=== PATIENT | male | born 1970 | race Caucasian/White ===

== ENCOUNTER 2024-05-26 09:05 | Inpatient (IN) | payer OTHER ==
[~2024-05-26] VITALS: Ht 180.3 cm; Wt 118.3 kg
[2024-05-26] MEDS ORDERED: Thiamine HCl 100 MG in NS 50 ML IV ONE (09:20)
[2024-05-26] MEDS ORDERED: NS 1,000 ML IV SCH ×3 (09:20→18:00)
[2024-05-26] MEDS ORDERED: Folic Acid 1 MG in NS 50 ML IV ONE (09:20)
[2024-05-26 09:29] LABS: Hematocrit 28.8 % (37.0-53.0); Hemoglobin 9.4 g/dL (13.5-17.5); Mean Corpuscular HGB 35.3 pg (26.0-34.0); Mean Corpuscular HGB Conc 32.6 g/dL (31.5-36.5); Mean Corpuscular Volume 108 fL (80-100); NRBC ABSOLUTE 0.39 K/mm3 (0.00-0.02); NRBC Auto 4.7 /100 WBC (0.0-0.2); Platelet Count 109 K/mm3 (150-400); RDW Coefficient Variation 20.7 % (11.7-14.2); RDW Standard Deviation 79.7 fL (35.1-46.3); Red Blood Cell Count 2.66 M/mm3 (4.30-5.90); White Blood Cell Count 8.35 K/mm3 (4.00-11.30)
[2024-05-26 09:43] LABS: International Normalized Ratio 1.12; Prothrombin Time Results 11.9 Sec (9.7-11.5)
[2024-05-26 09:47] LABS: Albumin, Blood 1.6 g/dL (3.4-5.0); Albumin/Globulin Ratio 0.4 (0.8-1.8); BAND PERCENT MAN 29 % (0-8); BASOPHILS PERCENT MAN 0 % (0-2); Bilirubin, Total 6.8 mg/dL (0.1-1.0); Bun/Creatinine Ratio 11.6 (12.0-20.0); Calcium, Blood 7.7 mg/dL (8.5-10.1); Creatinine, Blood 1.47 mg/dL (0.60-1.20); EOSINOPHILS ABSOLUTE MAN 0.08 K/mm3 (0.00-0.68); EOSINOPHILS PERCENT MAN 1 % (0-6); LYMPHOCYTES ABSOLUTE MAN 0.41 K/mm3 (0.84-5.20); LYMPHOCYTES PERCENT MAN 5 % (21-46); METAMYELOCYTE ABSOLUTE MAN 0.16 K/mm3 (0.00-0.00); METAMYELOCYTE PERCENT MAN 2 % (0-0); MONOCYTES ABSOLUTE MAN 0.25 K/mm3 (0.16-1.47); MONOCYTES PERCENT MAN 3 % (4-13); Magnesium, Blood 1.7 mg/dL (1.6-2.4); NEUTROPHILS ABSOLUTE MAN 7.43 K/mm3 (1.96-9.15); Phosphorus, Blood 1.7 mg/dL (2.5-4.9); Potassium, Blood 3.8 mmol/L (3.5-5.5); SEG NEUTROPHILS PERCENT MAN 60 % (41-73); TOTAL CELLS COUNTED 100; Total Protein, Blood 5.6 g/dL (6.4-8.2)
[2024-05-26] MEDS ORDERED: NS 1,250 ML IV SCH (10:00)
[2024-05-26] MEDS ORDERED: CefTRIAXone Sodium 1,000 MG in NS 100 ML IV ONE (10:40)
[2024-05-26] MEDS ORDERED: Pantoprazole Sodium 40 MG Injection IV ONE (10:40)
[2024-05-26] MEDS ORDERED: Acetaminophen 500 MG Tab PO ONE (14:00)
[2024-05-26] MEDS ORDERED: FLU VACC TS2024-25(6MOS UP)/PF 45 MCG/0.5 ML SYRINGE IM PRN (14:15)
[2024-05-26] MEDS ORDERED: LORazepam 2 MG/ML 1ML Injection IV PRN (14:15)
[2024-05-26] MEDS ORDERED: ChlordiazePOXIDE 25 MG Cap PO PRN (14:15)
[2024-05-26] MEDS ORDERED: Folic Acid 1 MG in NS 50 ML IV SCH (14:29)
[2024-05-26] MEDS ORDERED: Thiamine HCl 100 MG in NS 50 ML IV SCH (14:29)
[2024-05-26 14:42] LABS: Source, Urine Clean Catch
[2024-05-26 14:45] LABS: Appearance, Urine Clear (Clear); Blood, Urine 5+ (Neg); Color, Urine Amber (P-Yellow); Glucose Qualitative, Urine Neg (Neg); Ketones, Urine 2+ (Neg); Leukocyte Esterase, Urine 1+ (Neg); Nitrite, Urine Neg (Neg); Protein, Urine 3+ (Neg); Specific Gravity, Urine 1.015 (1.003-1.022); Urobilinogen, Urine 2+ (Normal)
[2024-05-26 14:54] LABS: Bilirubin, Urine 2+ (Neg)
[2024-05-26 14:56] LABS: U Barbituate Screen Not Detected; U Benzodiazapine Screen Not Detected; U Buprenorphine Screen Not Detected; U Cannabinoids Screen DETECTED; U Cocaine Screen Not Detected; U Methadone Screen Not Detected; U Opiates Screen Not Detected; U Oxycodone Screen Not Detected; U Phencyclidine Screen Not Detected
[2024-05-26 14:57] LABS: U Amphetamine Screen Not Detected; U Methamphetamine Screen Not Detected
[2024-05-26 14:59] LABS: Red Blood Cells, Urine 0-2 /hpf (0-2); White Blood Cells, Urine 0-2 /hpf (0-5)
[2024-05-26 15:00] LABS: Bacteria Rare /hpf; Squamous Epithelial Cells Rare /hpf (Few)
[2024-05-26 15:26] LABS: Hematocrit 23.8 % (37.0-53.0); Hemoglobin 7.8 g/dL (13.5-17.5)
[2024-05-26 15:45] VITALS: BP 86/56
[2024-05-26] MEDS ORDERED: Pantoprazole Sodium 40 MG Injection IV SCH (16:30)
[2024-05-26] MEDS ORDERED: FentaNYL Citrate 50 MCG/ML 2 ML Injection IV PRN (17:50)
[2024-05-26] MEDS ORDERED: Ondansetron HCl 2 MG / ML 2ML Vial IV PRN (17:50)
[2024-05-26] MEDS ORDERED: Banana Flakes/Tos 1 EA Powder Pack PO SCH (18:00)
[2024-05-26] MEDS ORDERED: Ciprofloxacin 400MG/D5 200ML 200 ML IV SCH (18:00)
[2024-05-26] MEDS ORDERED: MetroNIDAZOLE 500MG/NS 100 ml 100 ML IV SCH (18:00)
[2024-05-26] MEDS ORDERED: Potassium Phosphate Dibasic 30 MM in NS 500 ML IV SCH (18:30)
[2024-05-26 18:31] VITALS: BP 109/73
--- NOTE | 2024-05-26 18:48 | NUR ---
ADMISSION/SHIFT SUMMARY: PT IS A NEW ADMIT, ARRIVING F/ER APPROX 1530, TRANSFERED TO BED VIA SLIDER SHEET. PT IS A&Ox3, UNSURE OF DATE, GENERALLY WEAK. Hx OF DAILY DRINKER AND VAPING. PT NOT GIVING CLEAR INFORMATION RE: HOW MUCH HE DRINKS PER DAY. CIWA MONITORING IN PLACE, PT MEDICATED x1 PER EMAR. PT DENIES SOB, O2 SATS >95% WHILE AWAKE. AT ONE POINT, PT FELL ASLEEP AND SATS DOWN <90%, IMPROVED TO >93% ON 2 L/MIN NC, O2 BACK OFF WHILE AWAKE. PT DENIES CP, SIN TACH ON MONITOR W/RATE 110s-120s. PT W/ LOOSE BM x3, PROVIDER AWARE, SAMPLE COLLECTED AND SENT TO LAB. PT TOLERATING CL DIET AT THIS TIME. GI CONSULT HAS BEEN CALLED IN. AT THIS TIME, PT IS RESTING QUIETLY IN ROOM W/CALL LIGHT IN REACH. 1530
[2024-05-26 19:38] LABS: Adenovirus F 40/41 Detected (NOT DETECT); Campylobacter Sp Not Detected (NOT DETECT); Cryptosporidium Not Detected (NOT DETECT); Cyclospora Cayetanensis Not Detected (NOT DETECT); E. Coli O157 Not Detected (NOT DETECT); Entamoeba Histolytica Not Detected (NOT DETECT); Enteroaggregative E. coli-EAEC Not Detected (NOT DETECT); Enteropathogenic E. coli-EPEC Not Detected (NOT DETECT); Enterotoxigenic E. coli-ETEC Not Detected (NOT DETECT); Giardia Lamblia Not Detected (NOT DETECT); Plesiomonas Shigelloides Not Detected (NOT DETECT); Salmonella Sp Not Detected (NOT DETECT); Shiga Toxin-prod E. coli-STEC Not Detected (NOT DETECT); Shigella/Enteroin E. coli-EIEC Not Detected (NOT DETECT); Vibrio Cholerae Not Detected (NOT DETECT); Vibrio Sp Not Detected (NOT DETECT); Yersinia Enterocolitica Not Detected (NOT DETECT)
[2024-05-26 19:39] LABS: Astrovirus Not Detected (NOT DETECT); Norovirus GI/GII Not Detected (NOT DETECT); Rotavirus A Not Detected (NOT DETECT); Sapovirus Not Detected (NOT DETECT)
[2024-05-26 19:45] VITALS: BP 122/67
[2024-05-26] MEDS ORDERED: Lactobacil 2-S.Thermo-Bifido 1 1 Cap PO SCH (21:00)
[2024-05-26 21:15] LABS: Hematocrit 27.7 % (37.0-53.0); Hemoglobin 8.9 g/dL (13.5-17.5)
[2024-05-26] MEDS ORDERED: Ampicillin Sod 2,000 MG in NS 100 ML IV SCH (22:00)
--- NOTE | 2024-05-26 22:24 | NUR ---
ASSUMPTION OF CARE THIS RN ASSUMED CARE OF PATIENT AT 1900. PT LETHARGIC BUT ORIENTED X4, SOFT SPOKEN AND QUICKLY FELL BACK TO SLEEP. BP STABLE. SINUS TACH ON MONITOR WITH HR 120-130. PT REPORTS SOB. AUDIBLE EXPIRATORY WHEEZING NOTED. LS CLEAR TO AUSCULTATION. WHEN PT BECAME MORE AWAKE THIS RN CLARIFIED CODE STATUS D/T CONFLICTING NOTES REGARDING DNR VS FULL CODE ORDER. PT VERIFIED THAT HE WANTS TO BE A DNR. NOTIFIED AND VERBALIZED THAT HE WILL CHANGE ORDER. ALSO NOTIFIED REGARDING SOB/WHEEZING AND REGARDING POSTIIVE BLOOD CULTURES. MD MEHTA CHANGED ANTIBIOTIC COVERAGE. PT CALLING APPROPRIATELY AND USING BEDPAN. BEDREST AT THIS TIME D/T BEING NONAMBULATORY AND WEAK. CIWA OF 9 WHEN PT WOKE UP AROUND 2200. MEDICATED PER EMAR. MD MEHTA TO BEDSIDE TO EVALUATE PATIENT. POWERGLIDE PLACED BY VALERIE MUSA. BED IN LOWEST POSITION AND CALL LIGHT WITHIN REACH.
[2024-05-26 23:08] VITALS: BP 131/73
[2024-05-27] MEDS ORDERED: Acetaminophen 500 MG Tab PO ONE (02:10)
[2024-05-27 03:20] LABS: Hematocrit 25.2 % (37.0-53.0); Hemoglobin 8.1 g/dL (13.5-17.5); Mean Corpuscular HGB 34.5 pg (26.0-34.0); Mean Corpuscular HGB Conc 32.1 g/dL (31.5-36.5); Mean Corpuscular Volume 107 fL (80-100); Mean Platelet Volume 11.4 fL (9.1-12.4); NRBC ABSOLUTE 0.14 K/mm3 (0.00-0.02); NRBC Auto 1.6 /100 WBC (0.0-0.2); Platelet Count 75 K/mm3 (150-400); RDW Coefficient Variation 21.1 % (11.7-14.2); RDW Standard Deviation 80.6 fL (35.1-46.3); Red Blood Cell Count 2.35 M/mm3 (4.30-5.90); White Blood Cell Count 8.56 K/mm3 (4.00-11.30)
[2024-05-27 03:32] LABS: Stool Occult Blood Guaiac 1 Pos (Neg)
[2024-05-27 03:59] LABS: Albumin, Blood 1.5 g/dL (3.4-5.0); Albumin/Globulin Ratio 0.4 (0.8-1.8); Bilirubin, Total 6.5 mg/dL (0.1-1.0); Bun/Creatinine Ratio 16.1 (12.0-20.0); Calcium, Blood 7.2 mg/dL (8.5-10.1); Creatinine, Blood 1.12 mg/dL (0.60-1.20); Globulin, Blood 3.4 g/dL (2.2-4.0); Potassium, Blood 3.7 mmol/L (3.5-5.5); Total Protein, Blood 4.9 g/dL (6.4-8.2)
--- NOTE | 2024-05-27 04:30 | NUR ---
SHIFT SUMMARY SEE PREVIOUS NOTE CIWA'S REMAIN 8-10; MEDICATING PER EMAR ~2HRS. TEMP MAX OF 102.1, ORDER FOR OT TYLENOL. PT NOW AFEBRILE. PT REMAINS TACHYCARDIC WITH HR 120'S. TACHYPNEA NOTED. ON RA-1L WITH SPO2 >92%. MD NOTIFIED OF RED/HOT/PAINFUL LLE NEAR POPLITEAL REGION. MARKED WITH PEN. MD WITH ORDER FOR VENOUS DUPLEX. NS/ABX INFUSING PER EMAR. PT WITH INCONTINENT EPISODE OF URINE. URINE NOTED TO BE ORANGE IN COLOR. PT REMAINS JAUNDICED. REFUSING SCD'S D/T PAIN IN LEGS. PITTING EDEMA IN BLE. OTHER VSS. BED IN LOWEST POSITION AND CALL LIGHT WITHIN REACH. THIS RN WILL REPORT TO ONCOMING DAYSHIFT RN.
[2024-05-27 04:39] VITALS: BP 110/77
[2024-05-27 07:03] VITALS: BP 116/69
--- NOTE | 2024-05-27 07:27 | NUR ---
ASSUMPTION OF CARE: PATIENT RECENTLY ADMINISTRATION OF ATIVAN, SPO2 >94% ON 1L VIA NC. HEARTRATE IMPROVED THROUGH THE NIGHT WITH 130'S TO NOW 120'S. PATIENT RESPONDING TO QUESTIONS, OBVIOUS JAUNDICED, LLE MARKED WITH PEN FROM NIGHT RN, PENDING VENOUS DUPLEX R/O DVT. PATIENT INFUSING NS AT 100. BC + AMPICILLIN ADDED TO REGIEMTN OF ABX'S. PAINFUL TO TOUCH ON LLE. VSS AT THIS TIME, NO LONGER FEBRILE AT THIS TIME OF ASSESSMENT, PLAN OF CARE CONTINUES.
[2024-05-27 09:47] LABS: Hematocrit 26.7 % (37.0-53.0); Hemoglobin 8.5 g/dL (13.5-17.5)
[2024-05-27 10:56] VITALS: BP 98/63
[2024-05-27 11:13] VITALS: BP 88/64
[2024-05-27 11:15] VITALS: BP 123/68
[2024-05-27 11:16] VITALS: BP 103/60
[2024-05-27] MEDS ORDERED: Albumin (Human) 25gm/100ml 100 ML IV ONE (13:25)
[2024-05-27 15:35] LABS: Base Excess Venous -0.9 mmol/L; Bicarbonate Venous 23.9 mmol/L (24.0-30.0); PCO2 Venous 34.1 mmHg (38-42); pH Blood Venous 7.44 (7.34-7.37)
[2024-05-27 15:42] LABS: Hematocrit 25.2 % (37.0-53.0); Hemoglobin 8.2 g/dL (13.5-17.5); Mean Corpuscular HGB Conc 32.5 g/dL (31.5-36.5); Mean Corpuscular Volume 108 fL (80-100); Mean Platelet Volume 12.8 fL (9.1-12.4); NRBC ABSOLUTE 0.14 K/mm3 (0.00-0.02); NRBC Auto 1.4 /100 WBC (0.0-0.2); Platelet Count 79 K/mm3 (150-400); RDW Coefficient Variation 21.2 % (11.7-14.2); Red Blood Cell Count 2.34 M/mm3 (4.30-5.90); White Blood Cell Count 9.67 K/mm3 (4.00-11.30)
[2024-05-27 15:44] LABS: International Normalized Ratio 1.36; Prothrombin Time Results 14.2 Sec (9.7-11.5)
[2024-05-27 15:56] LABS: Albumin, Blood 1.9 g/dL (3.4-5.0); Albumin/Globulin Ratio 0.5 (0.8-1.8); Bilirubin, Total 7.3 mg/dL (0.1-1.0); Bun/Creatinine Ratio 17.5 (12.0-20.0); Calcium, Blood 8.1 mg/dL (8.5-10.1); Creatinine, Blood 1.14 mg/dL (0.60-1.20); Globulin, Blood 3.6 g/dL (2.2-4.0); Potassium, Blood 3.3 mmol/L (3.5-5.5); Total Protein, Blood 5.5 g/dL (6.4-8.2)
[2024-05-27 16:09] LABS: BAND PERCENT MAN 10 % (0-8); BASOPHILS ABSOLUTE MAN 0.09 K/mm3 (0.00-0.23); BASOPHILS PERCENT MAN 1 % (0-2); EOSINOPHILS PERCENT MAN 0 % (0-6); LYMPHOCYTES % ATYPICAL MANUAL 4 % (0-0); LYMPHOCYTES ABSOLUTE MAN 0.67 K/mm3 (0.84-5.20); LYMPHOCYTES PERCENT MAN 3 % (21-46); METAMYELOCYTE ABSOLUTE MAN 0.09 K/mm3 (0.00-0.00); METAMYELOCYTE PERCENT MAN 1 % (0-0); MONOCYTES ABSOLUTE MAN 0.29 K/mm3 (0.16-1.47); MONOCYTES PERCENT MAN 3 % (4-13); MYELOCYTE ABSOLUTE MAN 0.19 K/mm3 (0.00-0.00); MYELOCYTE PERCENT MAN 2 % (0-0); NEUTROPHILS ABSOLUTE MAN 8.31 K/mm3 (1.96-9.15); SEG NEUTROPHILS PERCENT MAN 76 % (41-73); TOTAL CELLS COUNTED 100
[2024-05-27] MEDS ORDERED: Morphine Sulfate 20 MG/1ML 1 ML Oral Syringe SL PRN (16:10)
[2024-05-27] MEDS ORDERED: Scopolamine Hydrobromide Patch TOP PRN (16:10)
[2024-05-27] MEDS ORDERED: LORazepam 1 MG Tab PO PRN (16:10)
[2024-05-27] MEDS ORDERED: LORazepam 2 MG/ML 1ML Injection IV PRN (16:10)
[2024-05-27] MEDS ORDERED: Haloperidol Lactate 2 MG/ML Conc 1ML Dose PO PRN (16:10)
[2024-05-27] MEDS ORDERED: Acetaminophen 650 MG Supp PR PRN (16:10)
[2024-05-27] MEDS ORDERED: Atropine Sulfate 1% Opth Soln 2ML BTL SL PRN (16:10)
[2024-05-27] MEDS ORDERED: Haloperidol Lactate Inj. 5 MG/ML Injection IV PRN (16:10)
[2024-05-27] MEDS ORDERED: HYDROmorphone HCl/Pf 1MG SYR IV PRN (16:15)
--- NOTE | 2024-05-27 16:50 | NUR ---
MET WITH PATIENT HER NEICE. FAMILY IS TO AGREABLE TO COMFORT CARE. PATIENT IS WANTING TO MAKE THAT TRANSITION AND FOCUS ON COMFORT AND STOP CURATIVE TREATMENT. EXPLAINED MEDICATION CHANGES AND CHANGES TO INTERVENTIONS. DISCUSSED WITH PROVIDER AND ORDERS WERE PLACED FOR COMFORT CARE.
--- NOTE | 2024-05-27 17:46 | NUR ---
Spiritual Care Visit After conferring with Palliative Care Nurse Blanquita, a visit was made to this Pt. Pt. is awake, and family is at bedside. Comfrot Care was recently decided. Some of the family present desired spiritual care, but the Pt. presently declined. Will remain available to the Pt. and family.
--- NOTE | 2024-05-27 17:59 | NUR ---
EOS: PATIENT THROUGH THE SHIFT CONTINUED TO DETERIORATE, FAMILY PALLIATIVE AND HOSPITALIST CONVERSED ABOUT PLAN OF CARE CHANGE DUE TO INCREASING ILLNESS. FAMILY AND PATIENT AGREED TO COMFORT CARE, PATIENT STILL WITHDRAWALING THROUGH THE DAY AND LIBRIUM,
--- NOTE | 2024-05-27 18:35 | NUR ---
CONTINUATION OF EOS: PATIENT REPOSITIONED Q2 NEEDED. RECTAL POOUCH PLACED PRIOR TO THIS FOR THE NUMEROUS WATERY STOOL. URINE OUTPUT DIMINISHED THROUGHOUT THE SHIFT. PATIENT MENTATION WAXES AND WANES, WITH LAST ADMINISTRATION OF ATIVAN AND LIBRIUM ENDORSED VISUAL HALLUCINATIONS.
--- NOTE | 2024-05-27 22:23 | NUR ---
PCU 09 TRANSFER. REPORT TAKEN FROM DAWNA MUSA. PATIENT COMFORT CARE. SOMNULENT ON 2L O2 NC FOR COMFORT. RECTAL POUCH IN PLACE. BEDREST. BED ALARM FOR HX OF IMPULSIVENESS WHEN AWAKE. WCTM.
--- NOTE | 2024-05-28 05:16 | NUR ---
SHIFT SUMMARY PATIENT ON COMFORT CARE. SOMNULENT SINCE PCU 09 TRANSFER, BEDREST. POWERGLIDE LEONIE ARM INTACT. IV ATIVAN 1 MG GIVEN FOR COMFORT/SLEEP. RECTAL POUCH IN PLACE. OPENED EYES X ONE AND BACK TO SLEEP. NO S/X OF DISTRESS. CALL LIGHT IN REACH. BED IN LOWEST POSITION. WILL CONTINUE TO MONITOR UNTIL DAY SHIFT NURSE ASSUMES CARE.
[2024-05-28 07:25] VITALS: BP 112/68
[2024-05-28 14:24] VITALS: BP 113/99
--- NOTE | 2024-05-28 18:09 | NUR ---
SHIFT SUMMARY PT SLEEPING FOR MUCH OF THE DAY. CHANGES TO RESPIRATIONS AND WORK OF BREATHING ASSESSED TRHOUGHOUT THE DAY. THIS MORNING THE PT WAS NOTED TO BE TACHYPNEIC AND HAVE SHALLOW RESPIRATIONS. THROUGHOUT THIS SHIFT THE PT RESPIRATIONS HAVE SLOWED AND INCREASED IN WORK OF BREATHING. PT MEDICATED WITH ROXANOL X2 THIS SHIFT FOR PAIN AND EASE OF BREATHING. PT VISITED BY FRIENDS THIS AFTERNOON.
--- NOTE | 2024-05-29 04:07 | NUR ---
SHIFT SUMMARY PT ALERT AND ORIENTED TIMES 1-2. PT GIVEN PAIN MEDICATION AND ZOFRAN AT 2300. WIRELESS FIELD TECHNICIAN UPON HOURLY ROUNDING AT 0145 ADVISED NURSE THAT PT DID NOT SEEM TO BE BREATHING. NURSE ASSESSED AND COULD NOT DETECT HEART BEAT, PALPITAL PULSE CHECKED FOR ONE MINUTE, PUPILS FIXED AND DIALATED, ABSENCE OF LUNG SOUNDS. CHARGE NURSE ALSO VERIFIED. CONTACTED NEXT OF KIN PER ADMISSION RECORDS. IT WAS STATED THAT FAMILY HAD SAID GOODBYES BUT WILL CALL IN THE MORNING. ADVISED THAT THE PT WILL BE PICKED UP BY [facility] AND THAT SERVICE WILL BE ABLE TO GIVE THEM THE INFORMATION THAT THEY NEED. FAMILY APPEARED TO BE GOOD WITH THAT. [facility] CAME TO REMOVE PT, FACE SHEET GIVEN TO TRANSPORT.
== END 2024-05-29 01:50 | DRG 871 ==
LOC: ER 09:05 → PCU 14:30 → MEDS 05-27 21:47
PROVIDERS: Emergency Medicine; Surgery; ADMIT Internal Medicine
PROC: 3E033XZ Introduction of Vasopressor into Peripheral Vein, Percutaneous Approach (ICD-10-PCS; principal; 2024-05-26)
PROC: 3E03329 Introduction of Other Anti-infective into Peripheral Vein, Percutaneous Approach (ICD-10-PCS; 2024-05-26)
DX: A41.89 Other specified sepsis (principal); R65.21 Severe sepsis with septic shock; E87.20 Acidosis, unspecified; N17.9 Acute kidney failure, unspecified; A08.2 Adenoviral enteritis; K92.2 Gastrointestinal hemorrhage, unspecified; K76.6 Portal hypertension; Z66 Do not resuscitate; Z51.5 Encounter for palliative care; B97.0 Adenovirus as the cause of diseases classified elsewhere; E83.39 Other disorders of phosphorus metabolism; E87.6 Hypokalemia; D69.6 Thrombocytopenia, unspecified; D64.9 Anemia, unspecified; K70.10 Alcoholic hepatitis without ascites; E88.09 Other disorders of plasma-protein metabolism, not elsewhere classified; F10.129 Alcohol abuse with intoxication, unspecified; R54 Age-related physical debility; K42.9 Umbilical hernia without obstruction or gangrene; K40.90 Unilateral inguinal hernia, without obstruction or gangrene, not specified as recurrent; I82.462 Acute embolism and thrombosis of left calf muscular vein; Y90.8 Blood alcohol level of 240 mg/100 ml or more
CPT/HCPCS: 36415; 71045; 73610; 74177; 80053; 80320; 81001; 82140; 82272; 82803; 83605; 83735; 83880; 84100; 84145; 85014; 85018; 85025; 85027; 85610; 85730; 86900; 86901; 87040; 87086; 87147; 87507; 93005; 93010; 93971; 96365-59; 96367; 96368; 96375; 99285-25; A9270; C1751; J0290; J0696; J0744; J2060; J2405; J2470; J3010; J3411; J7030; J7040; P9047; Q9967